=== PATIENT | female | born 1945 | race Caucasian/White ===

== ENCOUNTER → 2018-06-12 | Outpatient (CLI) | payer MEDICARE, BC ==
[~2018-06-12] MED LIST: ACET500 PO; ALBU90OI61 INH; ESTEST.625; IBUP400 PO; LEVSOD100 PO; PRED20 PO; PROGESTERONE100 MG PO; TRAM50 PO
== END | disposition home or self-care (01) ==
LOC: LAB SHORT 12:49 → LAB 12:49
DX: N39.0 Urinary tract infection, site not specified (principal)
CPT/HCPCS: 87077; 87086; 87186